=== PATIENT | female | born 1940 | race Caucasian/White ===

== ENCOUNTER → 2019-04-13 | Day surgery (SDC) | payer MEDICARE ==
[2019-04-08 16:19] LABS: BASOPHILS % 0.3 % (0.0-1.0); EOSINOPHILS % 0.3 % (0.0-6.0); HEMATOCRIT 34.7 % (34.2-44.1); HEMOGLOBIN 11.2 g/dL (12.0-16.0); LYMPHOCYTES # (AUTO) 1.7 (1.0-3.2); LYMPHOCYTES % 28.6 % (18.0-39.1); MEAN CORPUSCULAR HEMOGLOBIN 30.1 pg (28-32); MEAN CORPUSCULAR HGB CONC 32.3 g/dL (31-35); MEAN CORPUSCULAR VOLUME 93.3 fL (81-99); MONOCYTES # (AUTO) 0.4 (0.2-0.8); MONOCYTES % 6.8 % (4.4-11.3); NEUTROPHILS # (AUTO) 3.8 (2.1-6.9); NEUTROPHILS % 63.7 % (38.7-80.0); PLATELET COUNT 240 x10e3/uL (140-360); RED BLOOD COUNT 3.72 x10e6/uL (3.6-5.1); RED CELL DISTRIBUTION WIDTH 13.2 % (11.7-14.4)
--- NOTE | 2019-04-08 16:34 | Diagnostic Imaging Report ---
EXAMINATION: CHEST 2 VIEWS INDICATION: Pre-operative COMPARISON: None FINDINGS: LINES/TUBES:None LUNGS:The lungs are well-inflated. No focal consolidation or pulmonary edema. PLEURA:No pleural effusion or pneumothorax. MEDIASTINUM:The cardiomediastinal silhouette appears normal in size and shape. BONES/SOFT TISSUES:No acute osseous injury. ABDOMEN:No free air under the diaphragm. IMPRESSION: No focal pneumonia or pulmonary edema. Signed by: Tatiana Kaba MD on 04/08/2019 4:30 PM
[2019-04-08 16:38] LABS: ALANINE AMINOTRANSFERASE 11 IU/L (0-55); ALBUMIN 3.9 g/dL (3.5-5.0); ALKALINE PHOSPHATASE 62 IU/L (40-150); ANION GAP 12.2 mmol/L (8-16); BLOOD UREA NITROGEN 16 mg/dL (7-26); BUN/CREATININE RATIO 23 (6-25); CALCIUM 9.1 mg/dL (8.4-10.2); CARBON DIOXIDE 24 mmol/L (22-29); CHLORIDE 105 mmol/L (98-107); CREATININE, SERUM 0.69 mg/dL (0.57-1.11); EST GLOMERULAR FILTRATION RATE > 60 ML/MIN (60-); GLUCOSE 98 mg/dL (74-118); POTASSIUM 4.2 mmol/L (3.5-5.1); SODIUM 137 mmol/L (136-145)
[~2019-04-13] MED LIST: ACETAMINOPHEN 1000 MG/100 ML IV ONE; ACETAMINOPHEN 325 MG TAB PO PRN; BUPIVACAINE 0.25%/EPI 30ML SDV INJ ONE; CEFAZOLIN SOD 1 GM/NS 50ML 100 ML IV ONE; DEXAMETHASONE SOD PHOS INJ 4 MG/ML VIAL ONE; ESTROGENS CONJUGATED VAGINAL CR 45 GM TUBE PV ONE; FENTANYL CITRATE/PF 100MCG/2 ML INJ ONE; FOLIC ACID PO; GLYCOPYRROLATE INJ 1MG/ 5 ML SYR ONE; INFLECTRA100 MG IV; LEVOTHYROXINE88 MCG PO; LIDOCAINE HCL 2% LOCAL INJ 5 ML SDV VIAL INJ ONE; METHOTREXATE IM; MORPHINE SULFATE INJ 10 MG/ML ONE; NEOSTIGMINE 5 MG/5ML SYR ONE; ONDANSETRON HCL INJ 2MG/ML 2ML 2 MG/ML VIAL IV PRN; ONDANSETRON HCL INJ 2MG/ML 2ML 2 MG/ML VIAL ONE; ONE DAILY FOR1 EACH PO; POTASSIUM99 M1 PO; PRAVASTATIN SOD20 MG PO; PROLIA60 MG/1 ML INJ; PROPOFOL IV EMULSION 10 MG/ML 20 ML VIAL ONE; ROCURONIUM BROMIDE 10 MG/ML 5ML VIAL ONE; SEVOFLURANE INHAL SOLN 250 ML PEN BTL ONE; TRAMADOL HCL 50 MG TAB PO PRN; VITAMIN C250 MG PO; VITAMIN D31000 UNI2 PO
--- OUTSIDE RECORDS SUMMARY | 2019-04-13 05:13 | XMS REPORT ---
Author Author [facility] Address Unknown Phone Unavailable Care Team Providers Care Ventilator Specialist Name Role Phone DARA HURTADO Unavailable Unavailable Payers Payer Name Policy Type Policy Number Effective Date Expiration Date Problems This patient has no known problems. Allergies, Adverse Reactions, Alerts Allergy Name Allergy Type Status Severity Reaction(s) Onset Date Inactive Date Treating Clinician Comments loperamide DA Active CA 2018-03-06 00:00:00 Medications This patient has no known medications. Results Test Description Test Time Test Comments Text Results Atomic Results Result Comments CHEST 2 VIEWS 2019-04-08 16:30:00 [place] [address] Patient Name: KUMAR PEDROZA MR #: [id number] : 1940 Age/Sex: 79/F Req #: [id number] Adm Physician: Ordered by: DARA HURTADO MD Report #: [id number] Location: OR Room/Bed: Procedure: [id number] DX/CHEST 2 VIEWS Exam Date: 04/08/19 Exam Time: 1600 REPORT STATUS: Signed EXAMINATION: CHEST 2 VIEWS INDICATION: Pre-operative COMPARISON: None FINDINGS: LINES/TUBES:None LUNGS:The lungs are well-inflated. No focal consolidation or pulmonary edema. PLEURA:No pleural effusion or pneumothorax. MEDIASTINUM:The cardiomediastinal silhouette appears normal in size and shape. BONES/SOFT TISSUES:No acute osseous injury. ABDOMEN:No free air under the diaphragm. IMPRESSION: No focal pneumonia or pulmonary edema. Signed by: Farideh Gray MD on 04/08/2019 4:30 PM Dictated By: FARIDEH GRAY MD [id number] Transcribed By: RON Conroy on 04/08/19 1630 COPY TO: DARA HURTADO MD
[2019-04-13 11:40] VITALS: BP 147/70
--- NOTE | 2019-04-13 16:24 | Operative Report ---
DATE OF PROCEDURE: SURGEON: Sierra Mcdonald MD PREOPERATIVE DIAGNOSES: Pelvic organ prolapse, genuine stress incontinence. POSTOPERATIVE DIAGNOSES: Pelvic organ prolapse, genuine stress incontinence. PROCEDURES: Transobturator tape, cystoscopy, sacrospinous colpopexy, and anterior procedure repair. COMPLICATIONS: None. ESTIMATED BLOOD LOSS: 100 mL. PROCEDURE IN DETAIL: The patient was taken to the OR. General anesthesia was induced. She was prepped and draped in a sterile fashion, placed in dorsal lithotomy position with hyperflexion of the thigh joints. 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 First, the vaginal vault was held with 2 Allis clamps and the subvaginal skin anteriorly was injected with Marcaine with epinephrine 0.25% about 20 mL. The vagina was opened using the scalpel at the vault and the vagina was dissected off the bladder using a push spread technique with Metzenbaum scissors and the skin was in the middle anteriorly using the same instrument. The 2 flaps of the vagina dissected off underlying bladder using both sharp and blunt dissection. Following this, using index finger the pelvic fascia was pierced, ischial spine and sacrospinous ligament was palpated. Using the Capio needle sibley, Vicryl suture was placed on the sacrospinous ligament on each side of the pelvis and the other end was hooked up to the vaginal vault. Following this, the pubocervical ligament was approximated using Vicryl 0 sutures and excess vaginal skin was trimmed off using curved Stevens scissors and the vagina was closed with interlocking stitches of Vicryl 2-0 continuous stitch. The transobturator tape was performed at this stage with a Lepe catheter placed inside the bladder and the entry points on the skin were made using a marker pen at the level of the clitoris and the intercrural line. After injecting Marcaine with epi at the level of the urethra anteriorly, the vagina was opened with a scalpel and 2 layers under the wall of the vagina dissected off underlying urethra using Metzenbaum scissors using the push spread technique towards the inferior pubic ramus. This was repeated on the other side and with stab wounds on each side, the Obtryx trocar was passed through the entry points, but with a finger inside the wound at the level of the inferior pubic ramus guided to the outside of the wound. The sling was threaded on the trocar. The trocar was removed. The same was repeated on the other side and the sling laid down flat at the level of the mid urethra. Cystoscopy was performed and showed normal bladder and urethra. The external plastic cover was removed off the TOT and excess tape was excised at the entry points. The skin at the entry point was approximated using Dermabond. The vagina was approximated using Vicryl 2-0 continuous stitch. Following this procedure repair was performed with 2 Allis clamps were applied at the mucocutaneous junction about 1 cm from the fourchette skin in between was excised using curved Stevens scissors. The vagina was dissected off the perineum and rectum using Metzenbaum scissors and opened in the midline. Excess vaginal skin was trimmed off using curved Stevens scissors. The levator ani was approximated using Vicryl 0 sutures and the skin of the vagina was closed using Vicryl 2-0 continuous stitch and the perineum was approximated using subcutaneous. The rectum was checked with the index finger and found to be intact. Vaginal pack was inserted. The patient tolerated the procedure well. Lap and instrument counts correct x2 at the end of the procedure. The patient is requesting to leave the hospital after the surgery, as her had recently stroke and is kept at [facility]. Accordingly, the patient will stay in observation for 4-5 hours and if she is stable and able to void without difficulty, she will be discharged from the hospital. Sierra Mcdonald MD DD/AJ /[id number]
== END | disposition home or self-care (01) ==
LOC: OR 05:00
PROVIDERS: ATTEND Obstetrics & Gynecology
DX: N81.89 Other female genital prolapse (principal); N39.3 Stress incontinence (female) (male); M06.9 Rheumatoid arthritis, unspecified; E78.5 Hyperlipidemia, unspecified; E03.9 Hypothyroidism, unspecified; Z88.8 Allergy status to other drugs, medicaments and biological substances; Z01.810 Encounter for preprocedural cardiovascular examination; Z01.812 Encounter for preprocedural laboratory examination; Z01.818 Encounter for other preprocedural examination
CPT/HCPCS: 36415; 57282; 57288; 71046; 80053; 85025; 93005; C1781; J0131; J0690; J1100; J2001; J2270; J2405; J2704; J3010; J3490